=== PATIENT | male | born 1995 | race African-American/Black ===

== ENCOUNTER 2021-09-10 00:07 | Emergency (ER) | payer BC, MEDICAID ==
[~2021-09-10] VITALS: Ht 180.3 cm; Wt 112.0 kg
[2021-09-10 00:24] VITALS: BP 145/78
[2021-09-10] MEDS ORDERED: IBUPROFEN 800MG TABLET PO ONE (00:45)
[2021-09-10] MEDS ORDERED: ACETAMINOPHEN 500MG TABLET PO ONE (00:45)
== END 2021-09-10 01:16 | disposition left against medical advice (07) ==
LOC: ER 00:07
DX: Z53.21 Procedure and treatment not carried out due to patient leaving prior to being seen by health care provider (principal)
CPT/HCPCS: 99283